=== PATIENT | male | born 1980 | race Caucasian/White ===

== ENCOUNTER 2024-12-10 08:06 | Day surgery (SDC) | payer OTHER ==
[2024-12-10] VITALS (9 sets, daily range): BP systolic 105–144; BP diastolic 7–93
[~2024-12-10] VITALS: Ht 180.3 cm; Wt 80.6 kg
[~2024-12-10 08:06] MED LIST: ALBIPROI INH; ALBU90I INH; ALBU90OI INH; ALBU90OI6 INH; ALBU90OI61 INH; AMOCLA875 PO; AMOX500 PO; AZIT250 PO; BUPR1 PO; BUPRENORPHINE HC8 MG SL; Bactrim Ds Tab1 EACH PO; CEPH500 PO; CIPR500 PO; CODGUAEL PO; CYCL10; CYCL10 PO; DIPATR PO; DOXY100 PO; ERYT.5TO BOTHEYES; ESCI10; GABA100 PO; HYDACE10B PO; HYDACE5 PO; HYDACE7.5; HYDGUAL120 PO; IBUP600 PO; IBUP800; IBUPROFEN200 MG PO; KETO10 PO; MELO7.5; METCAR500 PO; METH5; METPRE4DP PO; MUPI2TO TOP; Monodox100 MG PO; NAPR500; NAPR500 PO; NAPR550 PO; OMEP20ER PO; OMEP40CA12 PO; OXYACE5T PO; PANT20; PENVK500 PO; PRED10 PO; PRED20 PO; PROC10 PO; PROM25 PO; PROM25S PR; SUBOXONE; SUCR1; SUCR1 PO; SULTRIDS PO; TRAM50; TRAM50 PO; Veetids 500500 MG PO; [UNRECOGNIZED DRUG - REMARK]; [UNRECOGNIZED DRUG - REMARK]
[2024-12-10] MEDS ORDERED: CeFAZolin Sodium 2,000 MG in NS 100 ML IV SCH (08:35)
[2024-12-10] MEDS ORDERED: Lactated Ringer's 1,000 ML IV SCH (08:35)
[2024-12-10] MEDS ORDERED: HYDROmorphone HCl/Pf 1MG SYR IV PRN ×2 (08:40)
[2024-12-10] MEDS ORDERED: FentaNYL Citrate 50 MCG/ML 2 ML Injection IV PRN ×2 (08:40→08:45)
[2024-12-10] MEDS ORDERED: Acetaminophen 500 MG Tab PO ONE (08:45)
[2024-12-10] MEDS ORDERED: Midazolam HCl 1MG / ML 2ML Vial IV PRN (08:45)
[2024-12-10] MEDS ORDERED: propofoL 20 ML IV ONE (08:46)
[2024-12-10] MEDS ORDERED: FentaNYL Citrate 50 MCG/ML 2 ML Injection ONE (08:46)
[2024-12-10] MEDS ORDERED: Lidocaine HCl 2% 20 ML MDV ONE (08:49)
[2024-12-10] MEDS ORDERED: Rocuronium Bromide 10 MG/ML 5ML Injection IV ONE (08:49)
[2024-12-10] MEDS ORDERED: Lidocaine HCl 1% 5 ML SYR INJ ONE (08:50)
[2024-12-10] MEDS ORDERED: CeFAZolin Sodium 2,000 MG VIAL ONE (08:57)
--- NOTE | 2024-12-10 09:15 | NUR ---
Ambulatory in Day Surgery WITH STEADY GAIT. History, Chart, Medications and Allergies reviewed before start of procedure. Pre-Op teaching done. Pt verbalizes understanding. Patient States Post-Procedure ride home has been arranged WITH SPOUSE. DENTURES REMOVED AND PLACED IN DENTURE CUP WITH PT'S NAME ON IT. ALL BELONGINGS PLACED UNDER GURN EXCEPT PT'S HAT AND CELL PHONE GIVEN TO SPOUSE. SPOUSE AT BEDSIDE DURING ADMISSION.
[2024-12-10] MEDS ORDERED: Bupivacaine 0.5% HCl 5 MG/ML 30MLVIAL ONE (09:35)
[2024-12-10] MEDS ORDERED: Metoclopramide HCl 5MG / ML 2ML Vial ONE (10:07)
[2024-12-10] MEDS ORDERED: Ondansetron HCl 2 MG / ML 2ML Vial ONE (10:07)
[2024-12-10] MEDS ORDERED: Sugammadex Sodium 200 MG/2ML SDV (100 MG/ML) ONE (10:23)
--- NOTE | 2024-12-10 11:33 | NUR ---
Discharge instructions reviewed with patient. Patient verbalizes understanding. Copy given to patient to take home. Dressing to procedure site clean, dry, intact with no visible drainage, swelling, erythema or bruising noted.
--- NOTE | 2024-12-10 11:45 | NUR ---
Discharged via wheelchair to private car for ride home.
== END 2024-12-10 11:45 | disposition home or self-care (01) ==
LOC: ORSCMMR 08:06 → SURS 08:09 → ORD 09:30 → SURS 09:30 → ORSCMMR 09:30
PROVIDERS: Surgery
PROC: 0JB60ZX Excision of Chest Subcutaneous Tissue and Fascia, Open Approach, Diagnostic (ICD-10-PCS; principal; 2024-12-10 09:30)
DX: D17.1 Benign lipomatous neoplasm of skin and subcutaneous tissue of trunk (principal); M79.89 Other specified soft tissue disorders; E11.40 Type 2 diabetes mellitus with diabetic neuropathy, unspecified; F17.210 Nicotine dependence, cigarettes, uncomplicated; Z79.899 Other long term (current) drug therapy; K21.9 Gastro-esophageal reflux disease without esophagitis
CPT/HCPCS: 88304; A9270; J0690; J2405; J2704; J2765; J3010; J7120

== ENCOUNTER 2025-03-13 06:39 | Day surgery (SDC) | payer OTHER ==
[2025-03-13] VITALS (10 sets, daily range): BP systolic 121–146; BP diastolic 62–89
[~2025-03-13] VITALS: Ht 180.3 cm; Wt 83.0 kg
[~2025-03-13 06:39] MED LIST changes: +ATOR20 PO; +Aspir 8181 MG PO; +METO25ER PO
[2025-03-13] MEDS ORDERED: NS 250 ML IV ONE (07:26)
[2025-03-13] MEDS ORDERED: NS 1,000 ML IV ONE ×2 (07:26→07:31)
[2025-03-13] MEDS ORDERED: Verapamil HCL 2.5 MG/ML 2ML Injection ONE (07:26)
[2025-03-13] MEDS ORDERED: Heparin Sodium 1000 Units/ML 10ML MDV ONE ×2 (07:26→08:18)
[2025-03-13] MEDS ORDERED: Nitroglycerin 2 MG/20 ML BTL ONE (07:26)
[2025-03-13] MEDS ORDERED: Midazolam HCl 1MG / ML 2ML Vial ONE ×2 (07:31→08:15)
--- NOTE | 2025-03-13 08:41 | NUR ---
PT RETURNED TO RECOVERY ROOM IN [facility]. RIGHT RADIAL TR BAND SITE SOFT NON-TENDER WITH NO HEMATOMA, NO PULSATILE BLEEDING AND RIGHT WRIST BOARD IN PLACE. PT DENIES CHEST PAIN. PT'S SO IN ROOM CALL LIGHT IN REACH.
--- NOTE | 2025-03-13 08:57 | NUR ---
NO CHANGES TO R RAD TR BAND SITE. PT EATING BREAKFAST.
--- NOTE | 2025-03-13 09:12 | NUR ---
NO CHANGES TO R RAD TR BAND SITE.
--- NOTE | 2025-03-13 09:32 | NUR ---
RIGHT RADIAL TR BAND SITE SOFT WITH NO HEMATOMA, NO PULSATILE BLEEDING AND RIGHT WRIST BOARD IN PLACE.
--- NOTE | 2025-03-13 09:54 | NUR ---
9 CC OF AIR REMOVED OUT OF NOW DEFLATED R RAD TR BAND; R RAD SITE SOFT WITH NO HEMATOMA,NO PULSATILE BLEEDING AND RIGHT WRIST BOARD IN PLACE. DEFLATION WAS OVER 10 MIN.
--- NOTE | 2025-03-13 10:07 | NUR ---
NO CHANGES TO DEFLATED R RAD SITE.
--- NOTE | 2025-03-13 10:40 | NUR ---
R RAD SITE STILL SOFT WITH NO HEMATOMA, NO PULSATILE BLEEDING AND RIGHT WRIST BOARD IN PLACE. DEFFLATED RIGHT RAD TR BAND REMOVED AND POLYMEM PLACED OVER R RAD SITE WITH WRIST BOARD IN PLACE. 20 G IV DISCONTINUED FROM LEFT AC WITH INTACT CANNULA. PT ESCORTED OUT VIA WHEELCHAIR ESCORT.
--- NOTE | 2025-03-13 10:43 | NUR ---
DISCHARGE INSTRUCTIONS WERE REVIEWED ALL QUESTIONS WERE ANSWERED.
== END 2025-03-13 23:00 | disposition home or self-care (01) ==
LOC: MHTC 06:39
DX: I47.20 Ventricular tachycardia, unspecified (principal); I25.9 Chronic ischemic heart disease, unspecified; I47.10 Supraventricular tachycardia, unspecified; E11.40 Type 2 diabetes mellitus with diabetic neuropathy, unspecified; E78.5 Hyperlipidemia, unspecified; Z79.899 Other long term (current) drug therapy
CPT/HCPCS: 76937; 93458; 99152; 99153; A9270; C1769; C1887; C1894; J1644; J2250; J7030; J7050; Q9967